=== PATIENT | female | born 1965 | race Hispanic/Latino ===

== ENCOUNTER 2019-06-10 01:57 | Emergency (ER) | payer SELFPAY ==
[2019-06-10] MEDS ORDERED: FAMOTIDINE 20MG TAB 20 MG TAB ONE (02:20)
[2019-06-10] MEDS ORDERED: DIPHENHYDRAMINE HCL 25 MG CAPSULE ONE (02:21)
== END 2019-06-10 03:22 | disposition home or self-care (01) ==
LOC: EDH 01:57
DX: L50.1 Idiopathic urticaria (principal); R03.0 Elevated blood-pressure reading, without diagnosis of hypertension; Z90.49 Acquired absence of other specified parts of digestive tract
CPT/HCPCS: 99283; Q0163

== ENCOUNTER 2021-12-29 22:21 | Emergency (ER) | payer OTHER, SELFPAY ==
[~2021-12-29] VITALS: Ht 162.6 cm; Wt 80.7 kg
[2021-12-29 22:38] VITALS: BP 140/70
[2021-12-29] MEDS ORDERED: CYCL-309 PO (22:47)
[2021-12-29] MEDS ORDERED: IBUP-1493 PO (22:47)
[2021-12-29] MEDS ORDERED: KETOROLAC 60 MG VIAL (30MG/ML) IM ONE ×2 (22:58→23:00)
[2021-12-29] MEDS ORDERED: CYCLOBENZAPRINE HCL 10 MG TABLET PO ONE (23:00)
== END 2021-12-29 23:10 | disposition home or self-care (01) ==
LOC: EDH 22:21
DX: M70.61 Trochanteric bursitis, right hip (principal); Z90.49 Acquired absence of other specified parts of digestive tract; Y93.89 Activity, other specified
CPT/HCPCS: 99283; 96372; J1885